=== PATIENT | male | born 1970 | race Caucasian/White ===

== ENCOUNTER 2019-03-25 09:42 | Emergency (ER) | payer OTHER, SELFPAY ==
[2019-03-25 09:44] VITALS: BP 165/98; PULSE 69; RESP 19; TEMP 36.4; O2SAT 94; BMI 38.1
--- NOTE | 2019-03-25 10:08 | RAD_ITS ---
STUDY: X-RAY CHEST REASON FOR EXAM: Male, 48 years old. CHEST PAIN TECHNIQUE: Single AP portable view of the chest. COMPARISON: None. FINDINGS: EKG electrodes are seen. Mild increase in markings at the right lung base suggestive of right basilar linear atelectasis. There is no demonstrated pleural abnormality. Normal size heart. Normal mediastinum and torey. Normal visualized pulmonary arteries. Normal visualized aortic arch and descending thoracic aorta. Normal visualized thoracic spine. Normal visualized ribs, clavicles, and shoulders. There is no demonstrated abnormality of the visualized soft tissue structures of the upper abdomen. RAD/Chest 1 View (Portable) IMPRESSION: Findings suggestive of linear atelectasis at the right lung base. Electronically Signed: Rao Valenzuela, at 10:35 EST , Service support ,
--- NOTE | 2019-03-25 10:08 | EKG12_ITS ---
Test Reason : CP Blood Pressure : / mmHG Vent. Rate : 065 BPM Atrial Rate : 065 BPM P-R Int : 158 ms QRS Dur : 098 ms QT Int : 422 ms P-R-T Axes : 025 006 025 degrees QTc Int : 438 ms Normal sinus rhythm Normal ECG Confirmed by RASHAUN SY, SEDA ([id number]), editor managing newspaper SHELTON SIDDIQI ([id number]) on 03/26/2019 10:35:28 AM Referred By: ROWDY/RENEE Confirmed By:CHRISTINE RODNEY MD
[2019-03-25 10:19] LABS: Absolute Lymphocyte Count 1.79 X10^3/uL (0.83-4.51); Absolute Neutrophil Count 4.8 X10^3/uL (2.0-7.7); Basophil# 0.04 X10^3/uL; Basophil% 0.5 % (0-1); Eosinophil# 0.15 X10^3/uL; Eosinophils% 2.1 % (0-5); Hematocrit 48.2 % (40-54); Hemoglobin 15.6 g/dL (13.0-16.5); Lymphocyte # 1.79 X10^3/ul (4.0); Lymphocyte % 24.5 % (19-41); Mean Corp Hgb Conc 32.4 g/dL (32-36); Mean Corpuscular Hgb 28.2 pg (27.0-32.0); Mean Corpuscular Volume 87.2 fL (80-94); Mean Platelet Vol. 9.5 fl (6.2-12.0); Monocyte# 0.53 X10^3/uL; Monocyte% 7.3 % (0-10); NRBC Flagged by Analyzer 0 % (0-5); Neutrophil # 4.78 X10^3/uL (2.7-7.7); Neutrophil % 65.5 % (47-70); Platelet Count 252 K/mm3 (150-450); RBC Distribution Width CV 12.4 % (11.6-14.6); RBC Distribution Width SD 39.3 fl (35.1-43.9); Red Blood Count 5.53 M/mm3 (4.6-6.2); White Blood Count 7.3 K/mm3 (4.4-11.0)
--- NOTE | 2019-03-25 10:29 | ED.VISSUMM ---
- ER Visit Summary Date of Service: 03/25/19 Chief Complaint: [Chest pain] History of Present Illness: The patient is a 48 M [presents to the emergency department complaint of chest pain that started this morning around 9 AM. Patient states that he was just getting ready go to break while at work when he developed sharp pain in his upper chest that he initially attributed to heartburn although it felt different than his typical heartburn pain. He denied any radiation of the pain. He denied nausea or vomiting with it. He denied feel lightheaded or dizzy. He denied feel short of breath with it. And he is never had discomfort like that before. Patient states that the discomfort lasted approximately 4 minutes and then it resolved. He is not had it again since. Patient does have history of hypertension and high cholesterol. Patient was advised by the nurse at work to be evaluated and get an EKG. There is no family history of heart disease. Patient denies any illicit drug use. He is not a smoker. He denies recent travel or surgery. He does not have history of PE or DVT.] Physical Examination: [HEENT-PERRLA, EOMI. Cranial nerves II through XII grossly intact. TMs clear. Mucous membranes moist. No adenopathy. Cardiovascular-regular rate and rhythm without murmur or ectopy Lungs-clear to auscultation, chest wall stable without crepitus or subcu emphysema Abdomen-normoactive bowel sounds, soft, nontender, no rebound or rigidity, no peritoneal signs. Extremities-intact ?4, normal range of motion, normal pulses, atraumatic] Test Results: [EKG obtained on arrival showed a sinus rhythm with a ventricular rate of 65 bpm with no acute ST segment changes.] Chest x-ray showed nothing acute. Patient had some atelectasis in the right lung base. D-dimer was normal 0.43. CBC with it was normal. Chemistries unremarkable. Troponin is less than 0.015. Delta troponin was obtained 3 hours from the first 1 and was negative at less than 0.015. Emergency Department Course and Treatment: [Received aspirin prior to arrival in the emergency department therefore he refused that here. Patient had no further pain while in the department.] Treatment Plan: [Etiology of patient's pain is unclear however his description of the pain is atypical. He has had no heart history. His JINNY risk score was a 2 based on risk factors of hypertension, cholesterol, and male sex. Patient also takes a baby aspirin daily. I feel patient is low risk and can be safely discharged to home. Patient advised to return if exertional symptoms such as chest pain, shortness of breath, diaphoresis, or condition should worsen anyway.] Disposition: [Discharged home in stable condition.] Impression: [Chest pain-etiology uncertain] This note was generated with [employer] dictation software. It may contain incorrect words, spelling, and punctuation that were not noted in review of the chart prior to signing ED Disposition - Plan for ED Patient: [facility] [Primary Care Provider] -
[2019-03-25 10:35] LABS: D-Dimer Quantitative (DVT/PE) 0.43 FEU/ug/m (0.27-0.49)
[2019-03-25 10:47] LABS: Anion Gap 5 (5-15); BUN 20 mg/dL (7-18); BUN/Creat Ratio 15.3 RATIO (10-20); Calcium,Total 9.5 mg/dL (8.5-10.1); Chloride 105 mmol/L (98-107); Creatinine, Serum 1.31 mg/dL (0.70-1.30); EST Glomerular Filtration Rate 62 mL/min (>60); Est Glom Filt Rate - Afr Amer 75 mL/min (>60); Estimated Creatinine Clearance 83.32 ml/min; Glucose 100 mg/dL (74-106); Potassium 3.5 mmol/L (3.5-5.1); Sodium Level 141 mmol/L (136-145)
[2019-03-25 11:12] VITALS: BP 142/91; PULSE 58; RESP 14; O2SAT 93
[2019-03-25 13:02] VITALS: PULSE 57; RESP 17; O2SAT 95
--- NOTE | 2019-03-25 14:14 | ED.DEP ---
ED Disposition - Plan for ED Patient: [facility] [Primary Care Provider] - 3-5 Days
[2019-03-25 14:21] VITALS: BP 154/94; PULSE 71; RESP 18; O2SAT 97
== END 2019-03-25 14:23 | disposition home or self-care (01) ==
PROVIDERS: Emergency Provider Emergency Medicine
DX: R07.89 Other chest pain (principal); J98.11 Atelectasis; I10 Essential (primary) hypertension; E78.00 Pure hypercholesterolemia, unspecified; Z79.82 Long term (current) use of aspirin; Z79.899 Other long term (current) drug therapy
CPT/HCPCS: 71045; 80048; 84484; 85025; 85379; 93005; 99284; J7030; A4216